=== PATIENT | male | born 1980 | race Caucasian/White ===

== ENCOUNTER 2024-07-16 05:09 | Emergency (ER) | payer BC ==
[~2024-07-16] VITALS: Ht 182.9 cm; Wt 104.0 kg
[2024-07-16 05:21] VITALS: O2SAT 98
[2024-07-16 05:31] VITALS: TEMP 97.9; O2SAT 97
[2024-07-16] MEDS ORDERED: T3 PO (06:26)
[2024-07-16] MEDS ORDERED: IBUP-2028 PO (06:27)
[2024-07-16] MEDS ORDERED: IBUPROFEN 800MG TABLET PO ONE (06:30)
[2024-07-16 08:05] VITALS: BP 123/84; PULSE 85; RESP 18
[2024-07-16] MEDS: IBUPROFEN 800MG TABLET PO NR (08:05)
== END 2024-07-16 07:40 | disposition home or self-care (01) ==
LOC: ER 05:09
DX: M25.511 Pain in right shoulder (principal); Z98.890 Other specified postprocedural states
CPT/HCPCS: 73030; 99283; A4565